=== PATIENT | female | born 2005 | race African-American/Black ===

== ENCOUNTER 2025-05-13 10:21 | Day surgery (SDC) | payer OTHER ==
[2025-05-13 10:41] LABS: Absolute Lymphocytes (CBC) 2.3 K/uL (0.7-4.9); Hematocrit 37.0 % (36.0-45.0); Hemoglobin 12.3 g/dL (12.0-15.0); MCH 27.7 pg (27.0-35.0); MCHC 33.2 g/dL (32.0-36.0); MCV 83.4 fL (80-100); MPV 8.1 fL (7.6-11.3); Nucleated RBC Absolute Count 0.0 (0-0); Nucleated Red Blood Cells % 0.0 % (0-0); RBC Red Blood Cell Count 4.43 M/uL (3.86-4.86); White Blood Count 9.00 thou/uL (4.3-10.9)
[2025-05-13 10:42] LABS: Anion Gap 11.0 mEq/L (5.0-15.0); BUN Blood Urea Nitrogen 12.0 mg/dL (7-18); Glucose Level 92.0 mg/dL (74-106); Potassium 4.0 mEq/L (3.5-5.1)
[2025-05-13] MEDS ORDERED: Ringers Lactate 1,000 ML IV ONE (10:47)
[2025-05-13] MEDS ORDERED: LIDOCAINE 1% MPF 5 ML VIAL ONE (12:06)
[2025-05-13] MEDS ORDERED: KETOROLAC 30 MG/ML INJ ONE (12:06)
[2025-05-13] MEDS ORDERED: ONDANSETRON 4 MG/2 ML VIAL ONE (12:06)
[2025-05-13] MEDS ORDERED: ROCURONIUM 50 MG/5 ML VIAL IV ONE (12:07)
[2025-05-13] MEDS ORDERED: FENTANYL CITR 100 MCG/2 ML ONE (12:07)
[2025-05-13] MEDS ORDERED: MIDAZOLAM HCL 2 MG/2 ML INJ ONE (12:07)
[2025-05-13] MEDS: CEFAZOLIN SODIUM 1 GM/VIAL ONE (13:10)
[2025-05-13] MEDS: METHYLENE BLUE 1% 10 ML VIAL ONE (13:20)
[2025-05-13] MEDS ORDERED: NEOSTIGMINE 1 MG/ML -10 ML VIAL ONE (13:28)
[2025-05-13] MEDS ORDERED: GLYCOPYRROLATE 0.2 MG/ML SYR ONE (13:28)
[2025-05-13] MEDS ORDERED: MORPHINE 10 MG/ML VIAL ONE (13:33)
--- NOTE | 2025-05-13 13:47 | P.BOP ---
Preoperative diagnosis: infected pilonidal cyst Postoperative diagnosis: same Primary procedure: Wide excision of infected pilonidal cyst [id number] Estimated blood loss: <10cc Specimen: cyst , culture Findings: cyst with abscess Anesthesia: General Complications: None Transferred to: Recovery Room Condition: Good
[2025-05-13] MEDS: HYDROCODONE/APAP 5/325 MG TAB ONE (14:50)
[2025-05-13 15:07] VITALS: BP 120/46; TEMP 98; O2SAT 97
--- NOTE | 2025-05-18 11:43 | OP ---
Date of Procedure: 05/13/2025 Surgeon: Uvaldo Prescott MD Preoperative Diagnosis: Infected pilonidal cyst. Postoperative Diagnosis: Infected pilonidal cyst. Procedure: Wide excision of infected pilonidal cyst, 4 x 4 x 2 cm. Estimated Blood Loss: Less than 10 cc. Specimens: Cyst and culture. Findings: Pilonidal cyst with abscess. Anesthesia: General plus local. Indications: This is the case of a female, who came to us with very tender sacral area diagnosed wit h infected pilonidal cyst with purulent discharge. The benefits, alternatives, and risks of wide exc ision of an infected pilonidal cyst with drainage of an abscess fully explained, which include, but n ot limited to, infection, bleeding, damage to adjacent structures, anesthesia complication, nonhealin g wound, IA, and even . She also understands this may not relieve any symptoms, she might need more than one surgical intervention, chance of recurrence, and also she will require wound care. She signed a consent. Description Of Procedure: The area of concern was marked by me and the patient previously. The [facility] ent was brought to the operating room, placed in supine position. Anesthesia was induced without com plication. The patient was placed in prone position with proper protection. Sacral and buttock area were prepped and draped in sterile fashion. A time-out was called. After injecting local anestheti c, we proceeded then to inject the methylene blue to one of the openings with purulent discharge and found to have a large cavity present. With the help of Bovie cauterizer and the knife, we proceeded then to remove all this pilonidal cyst all the way down to the area by the coccyx bone. The mass was completely excised due to the large amount of abscess and pus present. We obtained hemostasis, but after injecting local anesthetic, we just packed the area with iodoform quarter of an inch. The [facility] ent tolerated the procedure well. Sponge counts and instrument counts were correct. The patient sen t to recovery in stable condition. BRODY/AJAY Voice ID: [id number] Report ID: [id number]
--- NOTE | 2025-05-18 11:47 | DS ---
Date of Discharge: 05/13/2025 Diagnosis: Infected pilonidal cyst. Procedure: Wide excision of infected pilonidal cyst. Condition: Stable. Disposition: Home. Activity: As tolerated. No heavy lifting. Discharge Instructions: Follow up in my office in 1 week. Call for appointment at [phone]. [facility], for dressing changes, and mom feels comforta ble with that. BRODY/AJAY Voice ID: [id number] Report ID: [id number]
== END 2025-05-13 15:15 | disposition home or self-care (01) ==
LOC: OR 10:21
PROVIDERS: ATTEND Surgery
PROC: 0JB90ZZ Excision of Buttock Subcutaneous Tissue and Fascia, Open Approach (ICD-10-PCS; principal; 2025-05-13 12:30)
DX: L05.01 Pilonidal cyst with abscess (principal); L08.9 Local infection of the skin and subcutaneous tissue, unspecified
CPT/HCPCS: 87070; 85025; 80048; 36415; 87205; 84703; 88304; 87075; 11770; J1885; J2704; J2710; J2003; J2250; J3010; J1100; J2405; J7120; J0690